=== PATIENT | male | born 1960 | race Caucasian/White ===

== ENCOUNTER 2023-07-19 11:19 | Emergency (ER) | payer OTHER ==
--- OUTSIDE RECORDS SUMMARY | 2023-07-19 11:23 | XMS REPORT | Continuity of Care Document ---
:[address] [facility] t Address [address] [place] [address] [address] [place] [address] Care Team Providers Name Role Phone Alex Wall MD Primary Care Physician Ernestine Camejo Attending Clinician Unavailable Katya Kingston MD Attending Clinician ARLEEN TRIANA Attending Clinician Unavailable VINCENT CARRASCO Attending Clinician Unavailable MD ARLEEN TRIANA Attending Clinician Unavailable MD VINCENT CARRASCO Attending Clinician Unavailable ARLEEN TRIANA Admitting Clinician Unavailable MD ARLEEN TRIANA Admitting Clinician Unavailable VINCENT CARRASCO Admitting Clinician Unavailable MD VINCENT CARRASCO Admitting Clinician Unavailable Payers Payer Name Policy Type Policy Number Effective Date Expiration Date S tone [employer] MEDICARE C1 [id number] Common S [facility] Problems Condition Condition Condition Status Onset Resolution Last Treating Co mments Source Name Details Category Date Date Treatment Clinician Date AICD at AICD at Disease Active [facility] end of end of 06-30 st battery battery 00:00: Hospita life life 00 l Left Left Disease Active [facility] inguinal inguinal 3 st hernia hernia 00:00: Hospita 00 l Benign Benign Disease Active [facility] hypertensi hypertensi 01-16 st on on 00:00: Hospita 00 l Type II Type II Disease Active [facility] diabetes diabetes 01-16 st mellitus mellitus 00:00: Hospit a 00 l Hyperlipem Hyperlipem Disease Active M ethodi ia ia 01-16 st 00:00: Hospita 00 l Status Status Disease Active [facility] post post 01-16 implantati implantati 00:00: Ho spita on of on of 00 l automatic automatic cardiovert cardiovert er/defibri er/defibri llator llator (AICD) (AICD) Congestive Congestive Disease Active M ethodi heart heart 01-16 st failure failure 00:00: Hospita 00 l [id number] Hypertrigl Problem Co mmon yceridemia [facility] [id number] Essential Problem Comm on hypertensi [facility] on [facility] [id number] Benign Problem Common prostatic [facility] urinary Medical tract Center symptoms [id number] Pacemaker Problem Com mon [facility] Allergies, Adverse Reactions, Alerts Allergy Allergy Status Severity Reaction(s) Onset Inactive Treating Comm ents Source Name Type Date Date Clinician Penicill Propensi Active Unknown Metho di ins ty to Reaction 06-10 st adverse 00:00: Hospita reaction 00 l s to drug Family History Family Member Diagnosis Comments Start Date Stop Date Source Natural brother Prostate cancer [facility] Natural father Heart disease [facility] Natural father Hypertension [facility] Maternal grandmother Lung disease [facility] Natural mother Heart failure [facility] Natural mother Hypertension [facility] Natural mother Skin cancer [facility] Natural daughter No Known Problems [facility] Maternal grandfather No Known Problems [facility] Paternal grandfather No Known Problems [facility] Paternal grandmother No Known Problems [facility] Social History Social Habit Start Date Stop Date Quantity Comments Source Sexual orientation 2021-09-03 Heterosexual [facility] 14:27:19 (finding) Hospital [facility] of [facility] Sex Assigned At [facility] - [facility] History of Social 2023-01-30 2023-01-[address] function 00:00:00 00:00:00 Hospital Alcohol intake 2021-09-14 2021-09-14 Current non-drinker M [facility] 00:00:00 00:00:00 of alcohol Hospital (finding) Tobacco use and 2020-06-10 2020-06-10 Smokeless tobacco [facility] exposure 00:00:00 00:00:00 non-user Hospital Smoking Status Start Date Stop Date Source Never Smoker [facility] Medications Ordered Filled Start Stop Current Ordering Indication Dosage Frequency Signature Comments Components Source Medication Medication Date Date Medication? Clinician (SIG) Name Name Noelcepa 1 Vascepa 1 2021- No 2{capsu BID Vascepa 1 GM GM 05-19 les_wit GM 00:00: 00:00 h_meals 00 :00 } Vascepa 1 Vascepa 1 2021- No 2{capsu BID Vascepa 1 GM GM 05-19 les_wit GM 00:00: 00:00 h_meals 00 :00 } Vascepa 1 Vascepa 1 2021- No 2{capsu BID Vascepa 1 GM GM 05-19 les_wit GM 00:00: 00:00 h_meals 00 :00 } Vascepa 1 Vascepa 1 2021- No 2{capsu BID Vascepa 1 GM GM 05-19 les_wit GM 00:00: 00:00 h_meals 00 :00 } tamsulosin 2020-10 Yes TAKE ONE [facility] (FLOMAX) 1-10 (1) st 0.4 mg 00:00: CAPSULE(S) Hospi ta capsule 00 BY MOUTH l ONCE A DAY. tamsulosin 2020-10 Yes TAKE ONE [facility] (FLOMAX) 1-10 (1) st 0.4 mg 00:00: CAPSULE(S) Hospi ta capsule 00 BY MOUTH l ONCE A DAY. tamsulosin 2020-10 Yes TAKE ONE [facility] (FLOMAX) 1-10 (1) st 0.4 mg 00:00: CAPSULE(S) Hospi ta capsule 00 BY MOUTH l ONCE A DAY. tamsulosin 2020-10 Yes TAKE ONE [facility] (FLOMAX) 1-10 (1) st 0.4 mg 00:00: CAPSULE(S) Hospi ta capsule 00 BY MOUTH l ONCE A DAY. tamsulosin 2020-10 Yes TAKE ONE [facility] (FLOMAX) 1-10 (1) st 0.4 mg 00:00: CAPSULE(S) Hospi ta capsule 00 BY MOUTH l ONCE A DAY. glipiZIDE glipiZIDE No 1{table QD glipiZIDE ER 5 MG ER 5 MG 8-17 t_with_ ER 5 MG 00:00: food} 00 lisinopril- 2020-0 Yes 1{tbl} QD Take 1 [facility] hydrochloro 9-[address] thiazide 16:26: mouth Hospita (PRINZIDE,Z 14 daily. l ESTORETIC) 20-25 mg per tablet metoprolol 2020-0 Yes 200mg QD Take 200 [facility] succinate 9-[address] XL 16:26: mouth Hospita (TOPROL-XL) 14 every l 200 mg 24 evening. hr tablet metFORMIN 2020-0 Yes 1000mg Q.5D Take 1,000 [facility] (GLUCOPHAGE 9-[address] ) 500 mg 16:26: mouth 2 Hospit a tablet 14 (two) l times a day with meals. icosapent 2020-0 Yes 1g Q.5D Take 1 g [facility] ethyl 9-[address] (VASCEPA) 1 16:26: (two) Hospi ta gram 14 times a l capsule day. aspirin 2020-0 Yes 81mg QD Take 81 mg [facility] (ECOTRIN) 9-[address] 81 MG 16:26: daily. Hospita enteric 14 l coated tablet lisinopril- 2020-0 Yes 1{tbl} QD Take 1 [facility] hydrochloro 9-[address] thiazide 16:26: mouth Hospita (PRINZIDE,Z 14 daily. l ESTORETIC) 20-25 mg per tablet metoprolol 2020-0 Yes 200mg QD Take 200 [facility] succinate 9-[address] XL 16:26: mouth Hospita (TOPROL-XL) 14 every l 200 mg 24 evening. hr tablet metFORMIN 2020-0 Yes 1000mg Q.5D Take 1,000 [facility] (GLUCOPHAGE 9-[address] ) 500 mg 16:26: mouth 2 Hospit a tablet 14 (two) l times a day with meals. icosapent 2020-0 Yes 1g Q.5D Take 1 g [facility] ethyl 9-[address] (VASCEPA) 1 16:26: (two) Hospi ta gram 14 times a l capsule day. aspirin 2020-0 Yes 81mg QD Take 81 mg [facility] (ECOTRIN) 9-[address] 81 MG 16:26: daily. Hospita enteric 14 l coated tablet lisinopril- 2020-0 Yes 1{tbl} QD Take 1 [facility] hydrochloro 9-[address] thiazide 16:26: mouth Hospita (PRINZIDE,Z 14 daily. l ESTORETIC) 20-25 mg per tablet metoprolol 2020-0 Yes 200mg QD Take 200 [facility] succinate 9-[address] XL 16:26: mouth Hospita (TOPROL-XL) 14 every l 200 mg 24 evening. hr tablet metFORMIN 2020-0 Yes 1000mg Q.5D Take 1,000 [facility] (GLUCOPHAGE 9-[address] ) 500 mg 16:26: mouth 2 Hospit a tablet 14 (two) l times a day with meals. icosapent 2020-0 Yes 1g Q.5D Take 1 g [facility] ethyl 9-[address] (VASCEPA) 1 16:26: (two) Hospi ta gram 14 times a l capsule day. aspirin 2020-0 Yes 81mg QD Take 81 mg [facility] (ECOTRIN) 9-[address] 81 MG 16:26: daily. Hospita enteric 14 l coated tablet lisinopril- 2020-0 Yes 1{tbl} QD Take 1 [facility] hydrochloro 9-[address] thiazide 16:26: mouth Hospita (PRINZIDE,Z 14 daily. l ESTORETIC) 20-25 mg per tablet metoprolol 2020-0 Yes 200mg QD Take 200 [facility] succinate 9-[address] XL 16:26: mouth Hospita (TOPROL-XL) 14 every l 200 mg 24 evening. hr tablet metFORMIN 2020-0 Yes 1000mg Q.5D Take 1,000 [facility] (GLUCOPHAGE 9-[address] ) 500 mg 16:26: mouth 2 Hospit a tablet 14 (two) l times a day with meals. icosapent 2020-0 Yes 1g Q.5D Take 1 g [facility] ethyl 9-[address] (VASCEPA) 1 16:26: (two) Hospi ta gram 14 times a l capsule day. aspirin 2020-0 Yes 81mg QD Take 81 mg [facility] (ECOTRIN) 9-[address] 81 MG 16:26: daily. Hospita enteric 14 l coated tablet lisinopril- 2020-0 Yes 1{tbl} QD Take 1 [facility] hydrochloro 9-[address] thiazide 16:26: mouth Hospita (PRINZIDE,Z 14 daily. l ESTORETIC) 20-25 mg per tablet metoprolol 2020-0 Yes 200mg QD Take 200 [facility] succinate 9-[address] XL 16:26: mouth Hospita (TOPROL-XL) 14 every l 200 mg 24 evening. hr tablet metFORMIN 2020-0 Yes 1000mg Q.5D Take 1,000 [facility] (GLUCOPHAGE 9-[address] ) 500 mg 16:26: mouth 2 Hospit a tablet 14 (two) l times a day with meals. icosapent 2020-0 Yes 1g Q.5D Take 1 g [facility] ethyl 9-[address] (VASCEPA) 1 16:26: (two) Hospi ta gram 14 times a l capsule day. aspirin 2020-0 Yes 81mg QD Take 81 mg [facility] (ECOTRIN) 9-[address] 81 MG 16:26: daily. Hospita enteric 14 l coated tablet Tamsulosin Tamsulosin No Tamsulosin HCl 0.4 MG HCl 0.4 MG HCl 0.4 MG Metoprolol Metoprolol No Metoprolol Succinate Succinate Succinate ER 200 MG ER 200 MG ER 200 MG Vascepa 1 Vascepa 1 No 2{capsu BID Vascepa 1 GM GM les_wit GM h_meals } Lisinopril- Lisinopril- No 1{table QD Lisinopril hydroCHLORO hydroCHLORO t} -hydroCHLO thiazide thiazide ROthiazide 20-25 MG 20-25 MG 20-25 MG Lisinopril- Lisinopril- No 1{table QD Lisinopril hydroCHLORO hydroCHLORO t} -hydroCHLO thiazide thiazide ROthiazide 20-25 MG 20-25 MG 20-25 MG glipiZIDE glipiZIDE No 1{table QD glipiZIDE ER 5 MG ER 5 MG t_with_ ER 5 MG food} metFORMIN metFORMIN No 2{table BID metFORMIN HCl 500 MG HCl 500 MG t_with_ HCl 500 MG a_meal} Tamsulosin Tamsulosin No QD Tamsulosin HCl 0.4 MG HCl 0.4 MG HCl 0.4 MG Aspir-Low Aspir-Low No 1{table QD Aspir-Low 81 MG 81 MG t} 81 MG Lisinopril- Lisinopril- No 1{table QD Lisinopril hydroCHLORO hydroCHLORO t} -hydroCHLO thiazide thiazide ROthiazide 20-25 MG 20-25 MG 20-25 MG Lisinopril- Lisinopril- No 1{table QD Lisinopril hydroCHLORO hydroCHLORO t} -hydroCHLO thiazide thiazide ROthiazide 20-25 MG 20-25 MG 20-25 MG Metoprolol Metoprolol No Metoprolol Succinate Succinate Succinate ER 200 MG ER 200 MG ER 200 MG glipiZIDE glipiZIDE No 1{table QD glipiZIDE ER 5 MG ER 5 MG t_with_ ER 5 MG food} Aspir-Low Aspir-Low No 1{table QD Aspir-Low 81 MG 81 MG t} 81 MG Tamsulosin Tamsulosin No QD Tamsulosin HCl 0.4 MG HCl 0.4 MG HCl 0.4 MG Vascepa 1 Vascepa 1 No 2{capsu BID Vascepa 1 GM GM les_wit GM h_meals } Tamsulosin Tamsulosin No Tamsulosin HCl 0.4 MG HCl 0.4 MG HCl 0.4 MG metFORMIN metFORMIN No 2{table BID metFORMIN HCl 500 MG HCl 500 MG t_with_ HCl 500 MG a_meal} Lisinopril- Lisinopril- No 1{table QD Lisinopril hydroCHLORO hydroCHLORO t} -hydroCHLO thiazide thiazide ROthiazide 20-25 MG 20-25 MG 20-25 MG Lisinopril- Lisinopril- No 1{table QD Lisinopril hydroCHLORO hydroCHLORO t} -hydroCHLO thiazide thiazide ROthiazide 20-25 MG 20-25 MG 20-25 MG Metoprolol Metoprolol No Metoprolol Succinate Succinate Succinate ER 200 MG ER 200 MG ER 200 MG glipiZIDE glipiZIDE No 1{table QD glipiZIDE ER 5 MG ER 5 MG t_with_ ER 5 MG food} Aspir-Low Aspir-Low No 1{table QD Aspir-Low 81 MG 81 MG t} 81 MG Tamsulosin Tamsulosin No QD Tamsulosin HCl 0.4 MG HCl 0.4 MG HCl 0.4 MG Vascepa 1 Vascepa 1 No 2{capsu BID Vascepa 1 GM GM les_wit GM h_meals } Tamsulosin Tamsulosin No Tamsulosin HCl 0.4 MG HCl 0.4 MG HCl 0.4 MG metFORMIN metFORMIN No 2{table BID metFORMIN HCl 500 MG HCl 500 MG t_with_ HCl 500 MG a_meal} Lisinopril- Lisinopril- No 1{table QD Lisinopril hydroCHLORO hydroCHLORO t} -hydroCHLO thiazide thiazide ROthiazide 20-25 MG 20-25 MG 20-25 MG Lisinopril- Lisinopril- No 1{table QD Lisinopril hydroCHLORO hydroCHLORO t} -hydroCHLO thiazide thiazide ROthiazide 20-25 MG 20-25 MG 20-25 MG Metoprolol Metoprolol No Metoprolol Succinate Succinate Succinate ER 200 MG ER 200 MG ER 200 MG glipiZIDE glipiZIDE No 1{table QD glipiZIDE ER 5 MG ER 5 MG t_with_ ER 5 MG food} Aspir-Low Aspir-Low No 1{table QD Aspir-Low 81 MG 81 MG t} 81 MG Tamsulosin Tamsulosin No QD Tamsulosin HCl 0.4 MG HCl 0.4 MG HCl 0.4 MG Vascepa 1 Vascepa 1 No 2{capsu BID Vascepa 1 GM GM les_wit GM h_meals } Tamsulosin Tamsulosin No Tamsulosin HCl 0.4 MG HCl 0.4 MG HCl 0.4 MG metFORMIN metFORMIN No 2{table BID metFORMIN HCl 500 MG HCl 500 MG t_with_ HCl 500 MG a_meal} Lisinopril- Lisinopril- No 1{table QD Lisinopril hydroCHLORO hydroCHLORO t} -hydroCHLO thiazide thiazide ROthiazide 20-25 MG 20-25 MG 20-25 MG Lisinopril- Lisinopril- No 1{table QD Lisinopril hydroCHLORO hydroCHLORO t} -hydroCHLO thiazide thiazide ROthiazide 20-25 MG 20-25 MG 20-25 MG Metoprolol Metoprolol No Metoprolol Succinate Succinate Succinate ER 200 MG ER 200 MG ER 200 MG glipiZIDE glipiZIDE No 1{table QD glipiZIDE ER 5 MG ER 5 MG t_with_ ER 5 MG food} Aspir-Low Aspir-Low No 1{table QD Aspir-Low 81 MG 81 MG t} 81 MG Tamsulosin Tamsulosin No QD Tamsulosin HCl 0.4 MG HCl 0.4 MG HCl 0.4 MG Vascepa 1 Vascepa 1 No 2{capsu BID Vascepa 1 GM GM les_wit GM h_meals } Tamsulosin Tamsulosin No Tamsulosin HCl 0.4 MG HCl 0.4 MG HCl 0.4 MG metFORMIN metFORMIN No 2{table BID metFORMIN HCl 500 MG HCl 500 MG t_with_ HCl 500 MG a_meal} Lisinopril- Lisinopril- No 1{table QD Lisinopril hydroCHLORO hydroCHLORO t} -hydroCHLO thiazide thiazide ROthiazide 20-25 MG 20-25 MG 20-25 MG Lisinopril- Lisinopril- No 1{table QD Lisinopril hydroCHLORO hydroCHLORO t} -hydroCHLO thiazide thiazide ROthiazide 20-25 MG 20-25 MG 20-25 MG Metoprolol Metoprolol No Metoprolol Succinate Succinate Succinate ER 200 MG ER 200 MG ER 200 MG glipiZIDE glipiZIDE No 1{table QD glipiZIDE ER 5 MG ER 5 MG t_with_ ER 5 MG food} Aspir-Low Aspir-Low No 1{table QD Aspir-Low 81 MG 81 MG t} 81 MG Tamsulosin Tamsulosin No QD Tamsulosin HCl 0.4 MG HCl 0.4 MG HCl 0.4 MG Vascepa 1 Vascepa 1 No 2{capsu BID Vascepa 1 GM GM les_wit GM h_meals } Tamsulosin Tamsulosin No Tamsulosin HCl 0.4 MG HCl 0.4 MG HCl 0.4 MG metFORMIN metFORMIN No 2{table BID metFORMIN HCl 500 MG HCl 500 MG t_with_ HCl 500 MG a_meal} Lisinopril- Lisinopril- No 1{table QD Lisinopril hydroCHLORO hydroCHLORO t} -hydroCHLO thiazide thiazide ROthiazide 20-25 MG 20-25 MG 20-25 MG Aspir-Low Aspir-Low No 1{table QD Aspir-Low 81 MG 81 MG t} 81 MG Tamsulosin Tamsulosin No Tamsulosin HCl 0.4 MG HCl 0.4 MG HCl 0.4 MG Lisinopril- Lisinopril- No 1{table QD Lisinopril hydroCHLORO hydroCHLORO t} -hydroCHLO thiazide thiazide ROthiazide 20-25 MG 20-25 MG 20-25 MG metFORMIN metFORMIN No 2{table BID metFORMIN HCl 500 MG HCl 500 MG t_with_ HCl 500 MG a_meal} glipiZIDE glipiZIDE No 1{table QD glipiZIDE ER 5 MG ER 5 MG t_with_ ER 5 MG food} Vascepa 1 Vascepa 1 No 2{capsu BID Vascepa 1 GM GM les_wit GM h_meals } Tamsulosin Tamsulosin No QD Tamsulosin HCl 0.4 MG HCl 0.4 MG HCl 0.4 MG Metoprolol Metoprolol No Metoprolol Succinate Succinate Succinate ER 200 MG ER 200 MG ER 200 MG Lisinopril- Lisinopril- No 1{table QD Lisinopril hydroCHLORO hydroCHLORO t} -hydroCHLO thiazide thiazide ROthiazide 20-25 MG 20-25 MG 20-25 MG glipiZIDE glipiZIDE No 1{table QD glipiZIDE ER 5 MG ER 5 MG t_with_ ER 5 MG food} glipiZIDE glipiZIDE No 1{table QD glipiZIDE ER 5 MG ER 5 MG t_with_ ER 5 MG food} Tamsulosin Tamsulosin No QD Tamsulosin HCl 0.4 MG HCl 0.4 MG HCl 0.4 MG Tamsulosin Tamsulosin No Tamsulosin HCl 0.4 MG HCl 0.4 MG HCl 0.4 MG Aspir-Low Aspir-Low No 1{table QD Aspir-Low 81 MG 81 MG t} 81 MG Vascepa 1 Vascepa 1 No 2{capsu BID Vascepa 1 GM GM les_wit GM h_meals } Metoprolol Metoprolol No QD Metoprolol Succinate Succinate Succinate ER 200 MG ER 200 MG ER 200 MG metFORMIN metFORMIN No 2{table BID metFORMIN HCl 500 MG HCl 500 MG t_with_ HCl 500 MG a_meal} Tamsulosin Tamsulosin No Tamsulosin HCl 0.4 MG HCl 0.4 MG HCl 0.4 MG Lisinopril- Lisinopril- No 1{table QD Lisinopril hydroCHLORO hydroCHLORO t} -hydroCHLO thiazide thiazide ROthiazide 20-25 MG 20-25 MG 20-25 MG metFORMIN metFORMIN No 2{table BID metFORMIN HCl 500 MG HCl 500 MG t_with_ HCl 500 MG a_meal} glipiZIDE glipiZIDE No 1{table QD glipiZIDE ER 5 MG ER 5 MG t_with_ ER 5 MG food} Vascepa 1 Vascepa 1 No 2{capsu BID Vascepa 1 GM GM les_wit GM h_meals } Metoprolol Metoprolol No QD Metoprolol Succinate Succinate Succinate ER 200 MG ER 200 MG ER 200 MG Lisinopril- Lisinopril- No 1{table QD Lisinopril hydroCHLORO hydroCHLORO t} -hydroCHLO thiazide thiazide ROthiazide 20-25 MG 20-25 MG 20-25 MG Aspir-Low Aspir-Low No 1{table QD Aspir-Low 81 MG 81 MG t} 81 MG Tamsulosin Tamsulosin No Tamsulosin HCl 0.4 MG HCl 0.4 MG HCl 0.4 MG Lisinopril- Lisinopril- No 1{table QD Lisinopril hydroCHLORO hydroCHLORO t} -hydroCHLO thiazide thiazide ROthiazide 20-25 MG 20-25 MG 20-25 MG metFORMIN metFORMIN No 2{table BID metFORMIN HCl 500 MG HCl 500 MG t_with_ HCl 500 MG a_meal} glipiZIDE glipiZIDE No 1{table QD glipiZIDE ER 5 MG ER 5 MG t_with_ ER 5 MG food} Vascepa 1 Vascepa 1 No 2{capsu BID Vascepa 1 GM GM les_wit GM h_meals } Tamsulosin Tamsulosin No QD Tamsulosin HCl 0.4 MG HCl 0.4 MG HCl 0.4 MG Metoprolol Metoprolol No Metoprolol Succinate Succinate Succinate ER 200 MG ER 200 MG ER 200 MG Lisinopril- Lisinopril- No 1{table QD Lisinopril hydroCHLORO hydroCHLORO t} -hydroCHLO thiazide thiazide ROthiazide 20-25 MG 20-25 MG 20-25 MG Vascepa 1 Vascepa 1 No 2{capsu BID Vascepa 1 GM GM les_wit GM h_meals } Tamsulosin Tamsulosin No QD Tamsulosin HCl 0.4 MG HCl 0.4 MG HCl 0.4 MG Metoprolol Metoprolol No Metoprolol Succinate Succinate Succinate ER 200 MG ER 200 MG ER 200 MG metFORMIN metFORMIN No 2{table BID metFORMIN HCl 500 MG HCl 500 MG t_with_ HCl 500 MG a_meal} Aspir-Low Aspir-Low No 1{table QD Aspir-Low 81 MG 81 MG t} 81 MG metFORMIN metFORMIN No 2{table BID metFORMIN HCl 500 MG HCl 500 MG t_with_ HCl 500 MG a_meal} Vascepa 1 Vascepa 1 No 2{capsu BID Vascepa 1 GM GM les_wit GM h_meals } Tamsulosin Tamsulosin No QD Tamsulosin HCl 0.4 MG HCl 0.4 MG HCl 0.4 MG Metoprolol Metoprolol No Metoprolol Succinate Succinate Succinate ER 200 MG ER 200 MG ER 200 MG Lisinopril- Lisinopril- No 1{table QD Lisinopril hydroCHLORO hydroCHLORO t} -hydroCHLO thiazide thiazide ROthiazide 20-25 MG 20-25 MG 20-25 MG Aspir-Low Aspir-Low No 1{table QD Aspir-Low 81 MG 81 MG t} 81 MG Metoprolol Metoprolol No QD Metoprolol Succinate Succinate Succinate ER 200 MG ER 200 MG ER 200 MG Aspir-Low Aspir-Low No 1{table QD Aspir-Low 81 MG 81 MG t} 81 MG Tamsulosin Tamsulosin No QD Tamsulosin HCl 0.4 MG HCl 0.4 MG HCl 0.4 MG Lisinopril- Lisinopril- No 1{table QD Lisinopril hydroCHLORO hydroCHLORO t} -hydroCHLO thiazide thiazide ROthiazide 20-25 MG 20-25 MG 20-25 MG metFORMIN metFORMIN No 2{table BID metFORMIN HCl 500 MG HCl 500 MG t_with_ HCl 500 MG a_meal} Tamsulosin Tamsulosin No Tamsulosin HCl 0.4 MG HCl 0.4 MG HCl 0.4 MG Metoprolol Metoprolol No Metoprolol Succinate Succinate Succinate ER 200 MG ER 200 MG ER 200 MG Vascepa 1 Vascepa 1 No 2{capsu BID Vascepa 1 GM GM les_wit GM h_meals } Lisinopril- Lisinopril- No 1{table QD Lisinopril hydroCHLORO hydroCHLORO t} -hydroCHLO thiazide thiazide ROthiazide 20-25 MG 20-25 MG 20-25 MG Lisinopril- Lisinopril- No 1{table QD Lisinopril hydroCHLORO hydroCHLORO t} -hydroCHLO thiazide thiazide ROthiazide 20-25 MG 20-25 MG 20-25 MG glipiZIDE glipiZIDE No 1{table QD glipiZIDE ER 5 MG ER 5 MG t_with_ ER 5 MG food} metFORMIN metFORMIN No 2{table BID metFORMIN HCl 500 MG HCl 500 MG t_with_ HCl 500 MG a_meal} Tamsulosin Tamsulosin No QD Tamsulosin HCl 0.4 MG HCl 0.4 MG HCl 0.4 MG Aspir-Low Aspir-Low No 1{table QD Aspir-Low 81 MG 81 MG t} 81 MG Vascepa 1 Vascepa 1 2021- No 2{capsu BID Vascepa 1 GM GM 07-17 les_wit GM 00:00 h_meals :00 } Vital Signs Vital Name Observation Time Observation Value Comments Source height 2022-09-25 09:20:00 67.00 [in_i] [facility] weight 2022-09-25 09:20:00 195.0 [lb_av] [facility] temperature 2022-09-25 09:20:00 97.4 [degF] [facility] bmi 2022-09-25 09:20:00 30.54 kg/m2 [facility] oximetry 2022-09-25 09:20:00 98 % [facility] respiratory rate 2022-09-25 09:20:00 17 /min Comm on [facility] blood pressure 2022-09-25 09:20:00 132 mm[Hg] Common [facility] - systolic [facility] blood pressure 2022-09-25 09:20:00 74 mm[Hg] Common [facility] - diastolic [facility] blood pressure 2022-03-21 14:00:00 121 mm[Hg] Common [facility] systolic [facility] blood pressure 2022-03-21 14:00:00 77 mm[Hg] Common [facility] - diastolic [facility] height 2022-03-21 14:00:00 67.00 [in_i] Common [facility] weight 2022-03-21 14:00:00 193.4 [lb_av] [facility] temperature 2022-03-21 14:00:00 97.3 [degF] Common [facility] bmi 2022-03-21 14:00:00 30.29 kg/m2 [facility] oximetry 2022-03-21 14:00:00 98 % [facility] respiratory rate 2022-03-21 14:00:00 17 /min Comm on [facility] height 2022-03-21 14:00:00 67.00 [in_i] Common [facility] weight 2022-03-21 14:00:00 193.4 [lb_av] [facility] temperature 2022-03-21 14:00:00 97.3 [degF] [facility] bmi 2022-03-21 14:00:00 30.29 kg/m2 [facility] oximetry 2022-03-21 14:00:00 98 % [facility] respiratory rate 2022-03-21 14:00:00 17 /min Comm on [facility] blood pressure 2022-03-21 14:00:00 121 mm[Hg] Common [facility] systolic [facility] blood pressure 2022-03-21 14:00:00 77 mm[Hg] [facility] diastolic [facility] Procedures This patient has no known procedures. Plan of Care Planned Activity Planned Date Details Comments Source Future Scheduled 2023-06-29 Screening for [facility] Test 09:19:37 malignant neoplasm of colon (procedure) [code = 435698606] Future Scheduled 2023-06-29 Screening for [facility] Test 09:19:37 malignant neoplasm of colon (procedure) [code = 336106965] Future Scheduled 2023-06-29 Screening for [facility] Test 09:19:37 malignant neoplasm of colon (procedure) [code = 710929687] Future Scheduled 2023-06-29 COVID-19 VACCINE (#1) [facility] Test 09:19:37 [code = COVID-19 VACCINE (#1)] Future Scheduled 2023-06-29 65+ [facility]CCAL [facility] Test 09:19:37 VACCINE (1 - PCV) [code = 65+ PNEUMOCOCCAL VACCINE (1 - PCV)] Future Scheduled 2023-06-29 DIABETES: RETINAL EYE [facility] Test 09:19:37 EXAM [code = DIABETES: RETINAL EYE EXAM] Future Scheduled 2023-06-29 DIABETIC FOOT EXAM [facility] Test 09:19:37 [code = DIABETIC FOOT EXAM] Future Scheduled 2023-06-29 URINE MICROALBUMIN [facility] Test 09:19:37 [code = URINE MICROALBUMIN] Future Scheduled 2023-06-29 Hepatitis C screening [facility] Test 09:19:37 (procedure) [code = 100847321] Future Scheduled 2023-06-29 Screening for [facility] Test 09:19:37 malignant neoplasm of colon (procedure) [code = 101455250] Future Scheduled 2023-06-29 Screening for [facility] Test 09:19:37 malignant neoplasm of colon (procedure) [code = 239281592] Future Scheduled 2023-06-29 SHINGLES VACCINES (1 [facility] 09:19:37 of 2) [code = SHINGLES VACCINES (1 of 2)] Future Scheduled 2023-06-29 INFLUENZA VACCINE (#1) [facility] 09:19:37 [code = INFLUENZA VACCINE (#1)] Future Scheduled 2022-10-11 DIABETIC FOOT EXAM [facility] Test 07:37:27 [code = DIABETIC FOOT EXAM] Future Scheduled 2022-10-11 URINE MICROALBUMIN [facility] Test 07:37:27 [code = URINE MICROALBUMIN] Future Scheduled 2022-10-11 Hepatitis C screening [facility] 07:37:27 (procedure) [code = [id number]] Future Scheduled 2022-10-[address] [facility] Test 07:37:27 [code = COLONOSCOPY SCREENING] Future Scheduled 2022-10-11 SHINGLES VACCINES (1 [facility] Test 07:37:27 of 2) [code = SHINGLES VACCINES (1 of 2)] Future Scheduled 2022-10-11 [facility]INE [facility] 07:37:27 [code = INFLUENZA VACCINE] Future Scheduled 2022-10-11 COVID-19 VACCINE (#1) [facility] Test 07:37:27 [code = COVID-19 VACCINE (#1)] Future Scheduled 2022-10-11 Pneumococcal Vaccine: [facility] Hospital Test 07:37:27 Pediatrics (0 to 5 Years) and At-Risk Patients (6 to 64 Years) (1 - PCV) [code = Pneumococcal Vaccine: Pediatrics (0 to 5 Years) and At-Risk Patients (6 to 64 Years) (1 - PCV)] Future Scheduled 2022-10-11 DIABETES: RETINAL EYE [facility] Test 07:37:27 EXAM [code = DIABETES: RETINAL EYE EXAM] Future Scheduled 2022-10-11 [facility] Test 07:37:27 [code = DIABETIC FOOT EXAM] Future Scheduled 2022-10-11 [facility] Test 07:37:27 [code = URINE MICROALBUMIN] Future Scheduled 2022-10-11 Hepatitis C screening [facility] Test 07:37:27 (procedure) [code = [id number]] Future Scheduled 2022-10-[address] [facility] Test 07:37:27 [code = COLONOSCOPY SCREENING] Future Scheduled 2022-10-11 SHINGLES VACCINES (1 [facility] Test 07:37:27 of 2) [code = SHINGLES VACCINES (1 of 2)] Future Scheduled 2022-10-11 [facility]ACCINE [facility] 07:37:27 [code = INFLUENZA VACCINE] Future Scheduled 2022-10-11 COVID-19 VACCINE (#1) [facility] Hospital Test 07:37:27 [code = COVID-19 VACCINE (#1)] Future Scheduled 2022-10-11 Pneumococcal Vaccine: [facility] Hospital Test 07:37:27 Pediatrics (0 to 5 Years) and At-Risk Patients (6 to 64 Years) (1 - PCV) [code = Pneumococcal Vaccine: Pediatrics (0 to 5 Years) and At-Risk Patients (6 to 64 Years) (1 - PCV)] Future Scheduled 2022-10-11 DIABETES: RETINAL EYE [facility] Test 07:37:27 EXAM [code = DIABETES: RETINAL EYE EXAM] Future Scheduled 2022-10-11 DIABETIC FOOT EXAM [facility] Test 07:37:27 [code = DIABETIC FOOT EXAM] Future Scheduled 2022-10-11 [facility] Test 07:37:27 [code = URINE MICROALBUMIN] Future Scheduled 2022-10-11 Hepatitis C screening [facility] Test 07:37:27 (procedure) [code = [id number]] Future Scheduled 2022-10-[address] [facility] Test 07:37:27 [code = COLONOSCOPY SCREENING] Future Scheduled 2022-10-11 SHINGLES VACCINES (1 [facility] Test 07:37:27 of 2) [code = SHINGLES VACCINES (1 of 2)] Future Scheduled 2022-10-11 [facility]ACCINE [facility] 07:37:27 [code = INFLUENZA VACCINE] Future Scheduled 2022-10-11 COVID-19 VACCINE (#1) [facility] Test 07:37:27 [code = COVID-19 VACCINE (#1)] Future Scheduled 2022-10-11 Pneumococcal Vaccine: [facility] Hospital Test 07:37:27 Pediatrics (0 to 5 Years) and At-Risk Patients (6 to 64 Years) (1 - PCV) [code = Pneumococcal Vaccine: Pediatrics (0 to 5 Years) and At-Risk Patients (6 to 64 Years) (1 - PCV)] Future Scheduled 2022-10-11 DIABETES: RETINAL EYE [facility] Test 07:37:27 EXAM [code = DIABETES: RETINAL EYE EXAM] Future Scheduled 2022-10-11 DIABETIC FOOT EXAM [facility] Test 07:37:27 [code = DIABETIC FOOT EXAM] Future Scheduled 2022-10-11 [facility] Test 07:37:27 [code = URINE MICROALBUMIN] Future Scheduled 2022-10-11 Hepatitis C screening [facility] Test 07:37:27 (procedure) [code = [id number]] Future Scheduled 2022-10-11 COLONOSCOPY SCREENING [facility] Test 07:37:27 [code = COLONOSCOPY SCREENING] Future Scheduled 2022-10-11 SHINGLES VACCINES (1 [facility] Test 07:37:27 of 2) [code = SHINGLES VACCINES (1 of 2)] Future Scheduled 2022-10-11 [facility]ACCINE [facility] 07:37:27 [code = INFLUENZA VACCINE] Future Scheduled 2022-10-11 COVID-19 VACCINE (#1) [facility] Test 07:37:27 [code = COVID-19 VACCINE (#1)] Future Scheduled 2022-10-11 Pneumococcal Vaccine: [facility] Test 07:37:27 Pediatrics (0 to 5 Years) and At-Risk Patients (6 to 64 Years) (1 - PCV) [code = Pneumococcal Vaccine: Pediatrics (0 to 5 Years) and At-Risk Patients (6 to 64 Years) (1 - PCV)] Future Scheduled 2022-10-11 DIABETES: RETINAL EYE [facility] Test 07:37:27 EXAM [code = DIABETES: RETINAL EYE EXAM] Encounters Start End Encounter Admission Attending Care Care Encounter Source Date/Time Date/Time Type Type Clinicians Facility Department ID 2023-03-07 Outpatient Camejo, STLMLC STLC [id number] Common 08:13:01 Avnee [id number] [facility] 2023-03-05 Outpatient Camejo, STLMLC STLC [id number] Common 07:47:00 Avnee [id number] [facility] 2023-02-21 Outpatient Camejo, STLMLC STLC [id number] Common 08:03:00 Avnee [id number] [facility] 2022-07-24 Outpatient Camejo, STLMLC STLC [id number] Common 16:03:01 Avnee [facility] 2022-06-01 Outpatient Camejo, STLMLC STLC [id number] Common 13:14:02 Avnee [facility] 2022-01-26 Outpatient Camejo, STLC STLC [id number] Common 09:00:03 Avnee [facility] 2022-01-02 Outpatient Camejo, STLMLC STLMLC [id number] Common 11:08:02 Avnee [facility] 2021-11-23 Outpatient Camejo, STLMLC STLMLC [id number] Common 14:13:00 Avnee [id number] [facility] 2021-11-23 Outpatient Camejo, STLMLC STLMLC [id number] Common 13:37:31 Avnee 11854 [facility] 2021-11-23 Outpatient Camejo, STLMLC STLMLC [id number] Common 13:36:56 Avnee [id number] [facility] 2021-11-23 Outpatient Camejo, STLMLC STLMLC [id number] Common 13:34:46 Avnee [id number] [facility] 2021-11-23 Outpatient Camejo, STLMLC STLMLC [id number] Common 13:31:29 Avnee [id number] [facility] 2021-11-23 Outpatient Camejo, STLMLC STLMLC [id number] Common 13:20:42 Avnee [id number] [facility] 2022-09-25 2022-09-25 OFFICE STLMLC STLMLC [id number] Co mmon 00:00:00 00:00:00 VISIT EST Spir it PT LEVEL 3 [facility] 2022-08-07 2022-08-07 (TEL) STLMLC STLMLC [id number] Co mmon 00:00:00 00:00:00 [facility] 2022-06-09 2022-06-09 (TEL) STLMLC STLMLC [id number] Co mmon 00:00:00 00:00:00 [facility] 2022-06-08 2022-06-08 (TEL) STLMLC STLMLC [id number] Co mmon 00:00:00 00:00:00 [facility] 2022-05-29 2022-05-29 (TEL) STLMLC STLMLC [id number] Co mmon 00:00:00 00:00:00 [facility] 2022-05-29 2022-05-29 (TEL) STLMLC STLMLC [id number] Co mmon 00:00:00 00:00:00 [facility] 2022-05-19 2022-05-19 (TEL) STLMLC STLMLC [id number] Co mmon 00:00:00 00:00:00 [facility] 2022-03-21 2022-03-21 SUB ANNUAL STLMLC STLMLC [id number] Common 00:00:00 00:00:00 MCR [facility] WELLNESS - CHI VISIT [facility] 2022-03-21 2022-03-21 OFFICE STLMLC STLMLC [id number] Co mmon 00:00:00 00:00:00 VISIT [facility] PT - [facility] LEVEL 4 [facility] 2022-02-13 2022-02-13 (TEL) STLMLC STLMLC [id number] Co mmon 00:00:00 00:00:00 [facility] 2022-01-25 2022-01-25 (TEL) STLMLC STLMLC [id number] Co mmon 00:00:00 00:00:00 [facility] 2022-01-11 2022-01-11 Telephone Vashti .[id number] Rosalia 00:00:00 00:00:[id number] [id number] Hospit a .[id number] l .8 2022-01-02 2022-01-02 (TEL) STLMLC STLMLC [id number] Co mmon 00:00:00 00:00:00 [facility] 2021-09-19 2021-09-19 (TEL) STLMLC STLMLC [id number] Co mmon 00:00:00 00:00:00 [facility] 2021-09-14 2021-09-14 Outpatient VASHTI [facility] [id number] 00:00:00 00:00:00 KATYA [address] 2021-06-14 2021-06-14 Outpatient STLMLC STLMLC [id number] Common 00:00:00 00:00:00 [facility] 2021-06-14 2021-06-14 Outpatient STLMLC STLMLC [id number] Common 00:00:00 00:00:00 [facility] 2021-06-08 2021-06-08 Outpatient STLMLC STLMLC [id number] Common 00:00:00 00:00:00 [facility] 2021-06-02 2021-06-02 Outpatient STLMLC STLMLC [id number] Common 00:00:00 00:00:00 [facility] 2021-04-27 2021-04-27 Outpatient STLMLC STLMLC [id number] Common 00:00:00 00:00:00 [facility] 2020-06-30 2020-06-30 Outpatient KAMILAH, [facility] 179 [id number] [address] 00:00:00 00:00:00 NADIM 885 [facility] 2020-06-29 2020-06-29 Outpatient LUNA, [facility] [id number] 00:00:00 00:00:00 VINCENT 016 [facility] 2020-06-28 2020-06-28 Outpatient KAMILAH, [facility] [id number] 00:00:00 00:00:00 NADIM [address] 2020-06-14 2020-06-14 Outpatient LUNA, [facility] [id number] [address] 00:00:00 00:00:00 VINCENT [address] 2020-06-10 2020-06-10 Outpatient LUNA, [facility] [id number] [address] 00:00:00 00:00:00 VINCENT [address] 2020-06-10 2020-06-10 Outpatient LUNA, [facility] [id number] [address] 00:00:00 00:00:00 VINCENT [address] 2020-05-26 2020-05-26 Outpatient LUNA, [facility] [id number] 00:00:00 00:00:00 VINCENT [address] Results Test Description Test Time Test Comments Results Result Comments Source SARS-CoV-2 (COVID-19) RNA [Presence] in Respiratory sp ecimen by 2020-06-28 19:09:14 LAN with probe detection Test Item Value Reference Range Interpretation Comme nts SARS-CoV-2 (COVID-19) RNA [Presence] in Respiratory Not detected No t-Detected specimen by LAN with probe detection (test code = 42461-5) [facility]ST[facility] NOLENSARS-CoV-2 (COVID-19) RNA [Presence] in Respiratory specimen by LAN with probe [id number] 17:54:22 Test Item Value Reference Range Interpretation Comments SARS-CoV-2 (COVID-19) RNA Not detected Not-Detected [Presence] in Respiratory specimen by LAN with probe detection (test code = 36610-9) [facility] NOLEN
[2023-07-19 11:56] LABS: Absolute Lymphocytes (CBC) 2.1 K/uL (0.7-4.9); Hematocrit 46.8 % (39.6-49.0); Lymphocytes % 37.4 % (15.3-44.8); MCV 90.2 fL (80-100); MPV 8.1 fL (7.6-11.3); Platelets 186 thou/uL (152-406); RBC Red Blood Cell Count 5.19 M/uL (4.33-5.43)
[2023-07-19 12:36] LABS: Bilirubin Direct 0.1 mg/dL (0-0.2); Bilirubin Indirect, Calculated 0.3 mg/dL (0.2-0.8); Bilirubin Total 0.4 mg/dL (0.2-1.0); Magnesium 1.6 mg/dL (1.6-2.4); Potassium 3.9 mEq/L (3.5-5.1); Protein, Total 7.5 g/dL (6.4-8.2)
--- NOTE | 2023-07-19 12:45 | RAD REPORT ---
EXAM DESCRIPTION: RAD - Chest Single View - 07/19/2023 12:23 pm CLINICAL HISTORY: PALPITATIONS Chest pain. COMPARISON: <Comparisons> FINDINGS: Portable technique limits examination quality. The lungs are grossly clear. The heart is normal in size. Multi lead pacer/ defibrillator device pres ent. IMPRESSION: No acute intrathoracic process suspected.
--- NOTE | 2023-07-19 17:41 | EDPHYS ---
Physician Documentation [facility] Name: Vincent Okeefe Age: 63 yrs Sex: Male : 1960 Arrival Date: 07/19/2023 Time: 11:19 Bed 20 Private MD: ED Physician Xavier Polo HPI: 07/19 11:57 This 63 yrs old Male presents to ER via Ambulatory with complaints of High Blood rt Pressure, Palpitations, Other. 11:57 Patient presents to the ED with palpitations and reports of not feeling well. The rt patient checked his heart rate this morning, noted it was 120 which is abnormal for him. He states that he feels somewhat better but not back to baseline at this time. Denies other acute complaints at this time. Symptoms are moderate severity, no other aggravating elevating factors.. Historical: - Allergies: 11:32 PENICILLINS; ld1 - PMHx: 11:32 CHF; Diabetes - NIDDM; Hypertension; ld1 - PSHx: 11:32 Pacemaker (Hypertension); ld1 - Immunization history:: Adult Immunizations up to date, Client reports receiving the 2nd dose of the Covid vaccine. - Social history:: Smoking status: Patient denies any tobacco usage or history of. Patient/guardian denies using alcohol. - Family history:: not pertinent. ROS: 11:57 Constitutional: Negative for fever, chills, and weight loss, Respiratory: Negative for rt shortness of breath, cough, wheezing, and pleuritic chest pain, Abdomen/GI: Negative for abdominal pain, nausea, vomiting, diarrhea, and constipation, MS/Extremity: Negative for injury and deformity, Skin: Negative for injury, rash, and discoloration, Neuro: Negative for headache, weakness, numbness, tingling, and seizure, Psych: Negative for depression, anxiety, suicide ideation, homicidal ideation, and hallucinations, 11:57 Cardiovascular: Positive for palpitations, Negative for chest pain, Exam: 11:57 Constitutional: This is a well developed, well nourished patient who is awake, alert, rt and in no acute distress. Head/Face: Normocephalic, atraumatic. Chest/axilla: Normal chest wall appearance and motion. Nontender with no deformity. No lesions are appreciated. Cardiovascular: Regular rate and rhythm with a normal S1 and S2. No gallops, murmurs, or rubs. Normal PMI, no JVD. No pulse deficits. Respiratory: Lungs have equal breath sounds bilaterally, clear to auscultation and percussion. No rales, rhonchi or wheezes noted. No increased work of breathing, no retractions or nasal flaring. Abdomen/GI: Soft, non-tender, with normal bowel sounds. No distension or tympany. No guarding or rebound. No evidence of tenderness throughout. Skin: Warm, dry with normal turgor. Normal color with no rashes, no lesions, and no evidence of cellulitis. MS/ Extremity: Pulses equal, no cyanosis. Neurovascular intact. Full, normal range of motion. Neuro: Awake and alert, GCS 15, oriented to person, place, time, and situation. Cranial nerves II-XII grossly intact. Motor strength 5/5 in all extremities. Sensory grossly intact. Cerebellar exam normal. Normal gait. Psych: Awake, alert, with orientation to person, place and time. Behavior, mood, and affect are within normal limits. 11:57 ECG was reviewed by the Attending Physician. Vital Signs: 11:30 BP 147 / 73; Pulse 64; Resp 20; Temp 98.1(TE); Pulse Ox 98% on R/A; Weight 85.28 kg; ld1 Height 5 ft. 7 in. ; Pain 0/10; 16:22 BP 143 / 89; Pulse 97; Resp 18; Pulse Ox 97% on R/A; mb9 18:00 BP 127 / 83; Pulse 91; Resp 18; Pulse Ox 100% on R/A; ph 11:30 Body Mass Index 29.44 (85.28 kg, 170.18 cm) ld1 11:30 Pain Scale: Adult ld1 MDM: 11:37 Patient medically screened. rt 21:27 Differential diagnosis: Ventricular dysrhythmia, pacemaker malfunction. Data reviewed: rt vital signs, nurses notes, lab test result(s), EKG, radiologic studies. Consideration of Admission/Observation Escalation of care including admission/observation considered. 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 I discussed with the tech from [employer], stated that it is his SA node that is tachycardic, is inappropriately reading is a PMT, not true PMT. Patient did take his metoprolol, his heart rate did improve, stay stable. 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 I considered the following discharge prescriptions or medication management in the emergency department Medications were administered in the Emergency Department. See MAR. Care significantly affected by the following chronic conditions: Congestive Heart Failure. Counseling: I had a detailed discussion with the patient and/or guardian regarding the historical points, exam findings, and any diagnostic results supporting the discharge/admit diagnosis, lab results, the need for outpatient follow up, to return to the emergency department if symptoms worsen or persist or if there are any questions or concerns that arise at home. Response to treatment: the patient's symptoms have resolved after treatment. 07/19 11:39 Order name: Basic Metabolic Panel; Complete Time: 12:51 rt 07/19 11:39 Order name: CBC with Diff; Complete Time: 12:51 rt 07/19 11:39 Order name: LFT's; Complete Time: 12:51 rt 07/19 11:39 Order name: Magnesium; Complete Time: 12:51 rt 07/19 11:39 Order name: NT PRO-BNP; Complete Time: 12:51 rt 07/19 11:39 Order name: Troponin HS; Complete Time: 12:51 rt 07/19 11:39 Order name: XRAY Chest (1 view); Complete Time: 12:51 rt 07/19 11:39 Order name: EKG; Complete Time: 11:39 rt 07/19 11:39 Order name: Cardiac monitoring; Complete Time: 16:23 rt 07/19 11:39 Order name: EKG - Nurse/Tech; Complete Time: 11:43 rt 07/19 11:39 Order name: IV Saline Lock; Complete Time: 11:43 rt 07/19 11:39 Order name: Labs collected and sent; Complete Time: 11:43 rt 07/19 11:39 Order name: O2 Per Protocol; Complete Time: 11:43 rt 07/19 11:39 Order name: O2 Sat Monitoring; Complete Time: 11:43 rt 07/19 11:39 Order name: Misc. Order: interrogate pacemaker; Complete Time: 13:31 rt EC:57 Rate is 106 beats/min. Rhythm is irregular, Ventricular paced rhythm, for the first rt half of the EKG is at a rate of about 70, increases to a rate of about 130 for the second half of the EKG, continues to be a paced rhythm. ST, T waves, conduction consistent with ventricular paced rhythm. No Q waves. Administered Medications: No medications were administered Disposition Summary: 07/19/23 17:40 Discharge Ordered Notes: Location: Home rt Condition: Stable rt Diagnosis - Tachycardia, unspecified rt Followup: rt - With: Tani Amado MD - When: 5 - 6 days - Reason: Discharge Instructions: - Discharge Summary Sheet rt - Electrophysiology Study rt Forms: - Medication Reconciliation Form rt - Thank You Letter rt - Antibiotic Education rt - Prescription Opioid Use rt - Patient Portal Instructions rt - Leadership Thank You Letter rt Signatures: Dispatcher [employer] Luda Rey, RN RN ld1 Xavier Polo MD MD rt
--- NOTE | 2023-07-19 17:41 | ER ---
Nurse's Notes [facility] Name: Vincent Okeefe Age: 63 yrs Sex: Male : 1960 Arrival Date: 07/19/2023 Time: 11:19 Bed 20 Private MD: Diagnosis: Tachycardia, unspecified Presentation: 07/19 11:30 Chief complaint: Patient states: Hypertension and Tachycardia since this morning. ld1 Coronavirus screen: At this time, the client does not indicate any symptoms associated with coronavirus-19. Ebola Screen: No symptoms or risks identified at this time. Initial Sepsis Screen: Does the patient meet any 2 criteria? No. Patient's initial sepsis screen is negative. Does the patient have a suspected source of infection? No. Patient's initial sepsis screen is negative. Risk Assessment: Do you want to hurt yourself or someone else? Patient reports no desire to harm self or others. Onset of symptoms was July 19, 2023. 11:30 Method Of Arrival: Ambulatory ld1 11:30 Acuity: BEATRIZ 3 ld1 Triage Assessment: 11:32 General: Appears in no apparent distress. comfortable, Behavior is cooperative, ld1 anxious. Pain: Denies pain. EENT: No signs and/or symptoms were reported regarding the EENT system. Neuro: Level of Consciousness is awake, alert, obeys commands, Oriented to person, place, time, situation. Cardiovascular: Capillary refill < 3 seconds Patient's skin is warm and dry. Respiratory: Airway is patent Respiratory effort is even, unlabored. GI: Abdomen is round non-distended. : No signs and/or symptoms were reported regarding the genitourinary system. Derm: No signs and/or symptoms reported regarding the dermatologic system. Musculoskeletal: No signs and/or symptoms reported regarding the musculoskeletal system. Historical: - Allergies: 11:32 PENICILLINS; ld1 - PMHx: 11:32 CHF; Diabetes - NIDDM; Hypertension; ld1 - PSHx: 11:32 Pacemaker (Hypertension); ld1 - Immunization history:: Adult Immunizations up to date, Client reports receiving the 2nd dose of the Covid vaccine. - Social history:: Smoking status: Patient denies any tobacco usage or history of. Patient/guardian denies using alcohol. - Family history:: not pertinent. Screenin:41 [facility] ED Fall Risk Assessment (Adult) History of falling in the last 3 months, cm10 including since admission No falls in past 3 months (0 pts) Confusion or Disorientation No (0 pts) Intoxicated or Sedated No (0 pts) Impaired Gait No (0 pts) Mobility Assist Device Used No (0 pt) Altered Elimination No (0 pt) Score/Fall Risk Level 0 - 2 = Low Risk Oriented to surroundings, Maintained a safe environment, Hourly rounding (assess needs \T\ fall precautionary measures) done. Abuse screen: Denies threats or abuse. Denies injuries from another. Nutritional screening: No deficits noted. Tuberculosis screening: No symptoms or risk factors identified. Assessment: 13:40 General: Appears in no apparent distress. comfortable, Behavior is calm, cooperative. cm10 Neuro: No deficits noted. Level of Consciousness is awake, alert, obeys commands, Oriented to person, place, time, situation. Respiratory: No deficits noted. Airway is patent Respiratory effort is even, unlabored, Respiratory pattern is regular, symmetrical. Derm: No deficits noted. Skin is intact, Skin is pink, warm \T\ dry. Vital Signs: 11:30 BP 147 / 73; Pulse 64; Resp 20; Temp 98.1(TE); Pulse Ox 98% on R/A; Weight 85.28 kg; ld1 Height 5 ft. 7 in. ; Pain 0/10; 16:22 BP 143 / 89; Pulse 97; Resp 18; Pulse Ox 97% on R/A; mb9 18:00 BP 127 / 83; Pulse 91; Resp 18; Pulse Ox 100% on R/A; ph 11:30 Body Mass Index 29.44 (85.28 kg, 170.18 cm) ld1 11:30 Pain Scale: Adult ld1 ED Course: 11:22 Patient arrived in ED. im 11:23 Xaveir Polo MD is Attending Physician. rt 11:32 Triage completed. ld1 11:32 Arm band placed on right wrist. ld1 11:43 Inserted saline lock: 20 gauge in right upper arm, using aseptic technique. Blood ld1 collected. 11:48 sales and distribution clerk called [employer], , to arrange for a device em1 interrogation; Odilon advised us that he will contact a local indirect sales representative to assist us. 12:22 XRAY Chest (1 view) In Process Unspecified. EDMS 13:41 Patient has correct armband on for positive identification. Bed in low position. Call cm10 light in reach. Side rails up X2. Provided Education on: ED Process and Procedures. 17:02 Erika Hammond, RN is Primary Nurse. ph 17:40 Tani Amado MD is Referral Physician. rt 18:12 No provider procedures requiring assistance completed. IV discontinued, intact, ph bleeding controlled, No redness/swelling at site. Administered Medications: No medications were administered Medication: 13:41 VIS not applicable for this client. cm10 Outcome: 17:40 Discharge ordered by MD. rt 18:12 Discharged to home ambulatory, with family, ph 18:12 Condition: stable 18:12 Discharge instructions given to patient, family, Instructed on discharge instructions, follow up and referral plans. Demonstrated understanding of instructions, follow-up care, 18:13 Patient left the ED. ph Signatures: Dispatcher [employer] EDSC Jose Brand em1 Erika Hammond, RN RN Luda Benz RN RN ld1 Shiloh Sales, RN RN mb9 Xavier Polo MD MD rt Amber Irizarry Clarissa, RN RN cm10
[2023-07-19 20:13] VITALS: TEMP 98.1
[2023-07-19 20:14] VITALS: BP 143/89; O2SAT 97
--- NOTE | 2023-07-20 17:14 | EKG ---
Test Date: 2023-07-19 Test Time: 11:38:50 [employer] Web Developer: Jaspal LANDA MEASUREMENT RESULTS: Intervals: Rate: 106 SD: QRSD: 190 QT: 434 QTc: 576 Salyer: P: SD: QRS: 262 T: 87 INTERPRETIVE STATEMENTS: Electronic ventricular pacemaker Compared to ECG 10/22/2010 06:53:24 Sinus rhythm no longer present Fusion complex(es) no longer present First degree AV block no longer present Atrial abnormality no longer present Left-axis deviation no longer present Left bundle-branch block no longer present Electronically Signed On 07-20-23 17:11:23 CDT by Tani Amado
== END 2023-07-19 18:13 | disposition home or self-care (01) ==
LOC: ER 11:19
DX: R00.0 Tachycardia, unspecified (principal); I50.9 Heart failure, unspecified; I10 Essential (primary) hypertension; E11.9 Type 2 diabetes mellitus without complications; Z95.0 Presence of cardiac pacemaker; Z88.0 Allergy status to penicillin
CPT/HCPCS: 36415; 71045; 80048; 80076; 83735; 83880; 84484; 85025; 93005; 99283